=== PATIENT | male | born 1975 | race Caucasian/White ===

== ENCOUNTER 2018-02-02 12:30 | Emergency (ER) | payer BC, SELFPAY ==
[2018-02-02 13:09] LABS: HEMATOCRIT 52.6 % (42.0-52.0); HEMOGLOBIN 17.9 g/dl (13.5-17.5); MEAN CORPUSCULAR HEMOGLOBIN 31.2 pg (27.0-33.0); MEAN CORPUSCULAR VOLUME 91.6 fl (80.0-96.0); PLATELET COUNT, AUTOMATED 174 10^3/uL (150-450); RED BLOOD COUNT 5.74 10^6/uL (4.30-6.10); RED CELL DISTRIBUTION WIDTH 12.8 % (11.5-14.5); WHITE BLOOD COUNT 6.6 10^3/uL (4.0-10.0)
[2018-02-02] MEDS: LABETALOL HCL 100 MG/20 ML VIAL IV ×2 (13:24→14:35)
[2018-02-02 13:27] LABS: INR 0.99; PROTHROMBIN TIME 13.1 SECONDS (12.1-14.4)
[2018-02-02 13:32] LABS: ANION GAP 8 MEQ/L (8-16); BLOOD UREA NITROGEN 11 MG/DL (7-18); CALCIUM LEVEL 8.8 MG/DL (8.5-10.1); CARBON DIOXIDE LEVEL 26 MEQ/L (21-32); CHLORIDE LEVEL 108 MEQ/L (98-107); CPK CREATINE PHOSPHOKINASE 74 U/L (39-308); CREATININE FOR GFR 1.05 MG/DL (0.70-1.30); GLOMERULAR FILTRATION RATE > 60.0 (>60); GLUCOSE, FASTING 163 MG/DL (70-100); MB/CK RELATIVE INDEX 2.16 (< OR =4); POTASSIUM SERUM 4.2 MEQ/L (3.5-5.1); SODIUM LEVEL 142 MEQ/L (136-145); TROPONIN I < 0.02 NG/ML (< 0.10)
[2018-02-02] MEDS: ONDANSETRON 4MG/2ML VIAL (J2405) IV (14:38)
[2018-02-02] MEDS: MORPHINE 4 MG/ML 1ML VIAL/SYRINGE (J2270) IV (14:42)
== END 2018-02-02 16:09 | disposition left against medical advice (07) ==
LOC: M ED 12:30
DX: I10 Essential (primary) hypertension (principal); Z91.14 Patient's other noncompliance with medication regimen; S02.31XA Fracture of orbital floor, right side, initial encounter for closed fracture; S02.2XXA Fracture of nasal bones, initial encounter for closed fracture; H05.89 Other disorders of orbit; X58.XXXA Exposure to other specified factors, initial encounter; Y92.098 Other place in other non-institutional residence as the place of occurrence of the external cause; R94.31 Abnormal electrocardiogram [ECG] [EKG]; H53.2 Diplopia; Z72.89 Other problems related to lifestyle
CPT/HCPCS: J2270